=== PATIENT | female | born 1995 | race Hispanic/Latino ===

== ENCOUNTER 2020-12-29 12:46 | Emergency (ER) | payer OTHER ==
[~2020-12-29] VITALS: Ht 162.6 cm; Wt 61.4 kg
[2020-12-29 15:31] LABS: BASO # 0.1 10^3/uL (0.0-0.2); BASO % 0.8 % (0.0-1.0); EOS # 0.1 10^3/uL (0.0-0.5); EOS % 1.1 % (0.0-3.0); HEMATOCRIT 41.3 % (36.0-47.0); HEMOGLOBIN 14.4 g/dl (12.0-15.5); LYMPH # 1.9 10^3/uL (1.5-5.0); LYMPH % 29.8 % (24.0-44.0); MEAN CORPUSCULAR HEMOGLOBIN 30.9 pg (27.0-33.0); MEAN CORPUSCULAR HGB CONC 34.9 g/dl (32.0-36.5); MEAN CORPUSCULAR VOLUME 88.6 fl (80.0-96.0); MONO # 0.5 10^3/uL (0.0-0.8); MONO % 7.3 % (2.0-8.0); NEUTROPHILS # 3.8 10^3/uL (1.5-8.5); NEUTROPHILS % 60.8 % (36.0-66.0); PLATELET COUNT, AUTOMATED 243 10^3/uL (150-450); RED BLOOD COUNT 4.66 10^6/uL (4.00-5.40); WHITE BLOOD COUNT 6.3 10^3/uL (4.0-10.0)
--- NOTE | 2020-12-29 15:47 | REP ---
INDICATION: pelvic pain, . COMPARISON: None. TECHNIQUE: Transabdominal 1st trimester OB ultrasound. FINDINGS: Scanning demonstrates a single living intrauterine gestation in a free-floating lie. The crown-rump length of the embryonic pole is 12 mm. This corresponds with a 7 week 3 day gestational age estimate. heart rate is recorded at 153 beats per minute. No complication is seen. There is a 2.2 cm hypoechoic area in the maternal right ovary consistent with corpus luteum. IMPRESSION: Single living intrauterine gestation at 7 weeks 3 days by crown-rump length. SENIA is August 14, 2021 by sonographic criteria. No complication is identified. <Electronically signed by Gilberto Messer > 12/29/20 [id number]
[2020-12-29 16:09] VITALS: BP 105/59
[2020-12-29 16:14] LABS: BLOOD UREA NITROGEN 10 MG/DL (7-18); CALCIUM LEVEL 8.7 MG/DL (8.5-10.1); CARBON DIOXIDE LEVEL 24 MEQ/L (21-32); CHLORIDE LEVEL 106 MEQ/L (98-107); CREATININE FOR GFR 0.54 MG/DL (0.55-1.30); GLOMERULAR FILTRATION RATE > 60.0 (>60); GLUCOSE, FASTING 85 MG/DL (70-100); HCG, SERUM QUANTITATIVE 89299 MIU/ML; POTASSIUM SERUM 3.9 MEQ/L (3.5-5.1); SODIUM LEVEL 139 MEQ/L (136-145)
== END 2020-12-29 16:24 | disposition home or self-care (01) ==
LOC: M ED 12:46
DX: O26.891 Other specified pregnancy related conditions, first trimester (principal); M54.5 Low back pain; O34.81 Maternal care for other abnormalities of pelvic organs, first trimester; N83.201 Unspecified ovarian cyst, right side; Z3A.01 Less than 8 weeks gestation of pregnancy; Z86.16 Personal history of COVID-19

== ENCOUNTER 2021-08-06 10:53 | Outpatient (CLI) | payer OTHER ==
[~2021-08-06] VITALS: Ht 162.6 cm; Wt 77.5 kg
[2021-08-06 11:16] VITALS: BP 117/60
[2021-08-06] MEDS ORDERED: PRENTAB9 PO (11:24)
[2021-08-06] MEDS ORDERED: HOME MED LIST COMPLETE! XX SCH (11:25)
[2021-08-06 12:10] VITALS: BP 109/61
== END 2021-08-06 12:25 | disposition home or self-care (01) ==
LOC: M LDO 10:53
PROVIDERS: ATTEND Obstetrics & Gynecology
DX: O47.1 False labor at or after 37 completed weeks of gestation (principal); Z3A.38 38 weeks gestation of pregnancy
CPT/HCPCS: 59025; G0378; G0463

== ENCOUNTER 2021-08-06 19:00 | Inpatient (IN) | payer OTHER ==
[~2021-08-06] VITALS: Ht 162.6 cm; Wt 73.0 kg
[2021-08-06] VITALS (7 sets, daily range): BP systolic 110–132; BP diastolic 57–70
[~2021-08-06 19:00] MED LIST: PRENTAB9 PO
[2021-08-06] MEDS ORDERED: OXYTOCIN 30 UNITS IN 0.9% NaCl 500ML IV BAG (J2590) As Ordered ONE (19:04)
[2021-08-06 19:24] LABS: CORD GAS ABE A -3.1; CORD GAS ABE V -3.5; CORD GAS HCO3 A 23.1 MEQ/L; CORD GAS HCO3 V 19.4 MEQ/L; CORD GAS O2 SAT A 28.8 %; CORD GAS PCO2 A 45.4 mmHg; CORD GAS PCO2 V 29.7 mmHg; CORD GAS PH A 7.325 UNITS; CORD GAS PH V 7.434 UNITS; CORD GAS PO2 A 16.1 mmHg; CORD GAS PO2 V 58.2 mmHg; CORD GAS SBC A 20.3 MEQ/L; CORD GAS SBC V 21.5 MEQ/L; CORD GAS TCO2 A 24.5 MEQ/L; CORD GAS TCO2 V 20.4 MEQ/L
[2021-08-06] MEDS ORDERED: LR 1,000 ML IV SCH (19:30)
[2021-08-06] MEDS ORDERED: OXYTOCIN DRIP 30 UNITS in IV 1 EA IV PRN (19:30)
[2021-08-06] MEDS ORDERED: OXYTOCIN INJ 10 UNITS/ML VIAL (J2590) IV PRN (19:30)
[2021-08-06] MEDS ORDERED: LACTATED RINGER'S 1000 ML IV ONE (19:30)
[2021-08-06] MEDS ORDERED: RHOGAM 300 MCG (1500 IU) INJ (J2790) IM SCH (19:35)
[2021-08-06] MEDS ORDERED: MEASLES,MUMPS,RUBELLA VACCINE INJ (MMR-II) (90707) SC SCH (19:35)
[2021-08-06] MEDS ORDERED: ANUSOL HC CREAM 30GM TOP PRN (19:35)
[2021-08-06] MEDS ORDERED: DOCUSATE SODIUM 100MG CAPSULE PO PRN (19:35)
[2021-08-06] MEDS ORDERED: OXYTOCIN DRIP 30 UNITS in IV 1 EA IV ONE (19:35)
[2021-08-06] MEDS ORDERED: DIBUCAINE 1% OINTMENT 30GM TOP PRN (19:35)
[2021-08-06] MEDS ORDERED: OXYTOCIN INJ 10 UNITS/ML VIAL (J2590) IV ONE (19:35)
[2021-08-06] MEDS ORDERED: MOM 30ML SUSPENSION UDC PO PRN (19:35)
[2021-08-06] MEDS ORDERED: ACETAMINOPHEN 500 MG TAB PO PRN (19:35)
[2021-08-06] MEDS ORDERED: ACETAMINOPHEN 650 MG SUPP PR PRN (19:35)
[2021-08-06] MEDS ORDERED: IBUPROFEN 600MG TAB PO PRN (19:35)
[2021-08-06] MEDS ORDERED: ACETAMINOPHEN TAB 650MG DOSE (2X325MG) PO PRN (19:35)
[2021-08-06] MEDS ORDERED: METHYLERGONOVINE MALEATE 0.2 MG TAB PO PRN (19:35)
[2021-08-06 19:36] LABS: HEMOGLOBIN 13.9 g/dl (12.0-15.5); MEAN CORPUSCULAR HEMOGLOBIN 31.6 pg (27.0-33.0); MEAN CORPUSCULAR HGB CONC 34.8 g/dl (32.0-36.5); MEAN CORPUSCULAR VOLUME 90.9 fl (80.0-96.0); PLATELET COUNT, AUTOMATED 198 10^3/uL (150-450); WHITE BLOOD COUNT 11.9 10^3/uL (4.0-10.0)
[2021-08-06] MEDS: OXYTOCIN DRIP 30 UNITS in IV 1 EA IV SCH (21:00)
[2021-08-07] MEDS: OXYTOCIN DRIP 30 UNITS in IV 1 EA IV SCH ×6 (01:00→21:00)
[2021-08-07 05:21] VITALS: BP 105/57
[2021-08-07 07:46] LABS: HEMATOCRIT 35.8 % (36.0-47.0); HEMOGLOBIN 12.2 g/dl (12.0-15.5); MEAN CORPUSCULAR HEMOGLOBIN 31.2 pg (27.0-33.0); MEAN CORPUSCULAR HGB CONC 34.1 g/dl (32.0-36.5); MEAN CORPUSCULAR VOLUME 91.6 fl (80.0-96.0); PLATELET COUNT, AUTOMATED 179 10^3/uL (150-450); RED BLOOD COUNT 3.91 10^6/uL (4.00-5.40); WHITE BLOOD COUNT 10.5 10^3/uL (4.0-10.0)
[2021-08-07] MEDS: PRENATAL VITAMINS CHEWABLE TABLET PO SCH (08:07)
[2021-08-07] MEDS ORDERED: INFLUENZA QUADRIVALENT PF VACCINE 0.5ML SYRINGE IM ONE (09:00)
[2021-08-07 17:55] VITALS: BP 113/62
[2021-08-08] MEDS: OXYTOCIN DRIP 30 UNITS in IV 1 EA IV SCH ×2 (01:00→05:00)
[2021-08-08 05:26] VITALS: BP 97/50
[2021-08-08] MEDS ORDERED: IBUP-1022 PO (07:24)
[2021-08-08] MEDS ORDERED: ACET1TAB55 PO (07:24)
[2021-08-08] MEDS ORDERED: COLA100C5 PO (07:24)
[2021-08-08] MEDS: PRENATAL VITAMINS CHEWABLE TABLET PO SCH (09:04)
== END 2021-08-08 12:20 | disposition home or self-care (01) | DRG 807 ==
LOC: M LDI 19:00 → M OBS 21:10
PROVIDERS: ADMIT Obstetrics & Gynecology; ATTEND Obstetrics & Gynecology
PROC: 10E0XZZ Delivery of Products of Conception, External Approach (ICD-10-PCS; principal; 2021-08-06)
DX: O62.3 Precipitate labor (principal); Z37.0 Single live birth; Z3A.38 38 weeks gestation of pregnancy; O69.81X0 Labor and delivery complicated by cord around neck, without compression, not applicable or unspecified